=== PATIENT | male | born 1935 | race Two or more races ===

== ENCOUNTER 2016-09-17 01:09 | Emergency (ER) | payer OTHER ==
[2016-09-17] MEDS ORDERED: SOD CHLORIDE 0.9% 1,000 ML IV STA (01:24)
[2016-09-17] MEDS ORDERED: MIDAZOLAM (DRIP) 50 mg/50 mL 50 ML IV STA (01:24)
[2016-09-17] MEDS ORDERED: ACETAMINOPHEN 650 MG SUPP PR ONE (01:30)
[2016-09-17] MEDS ORDERED: AZITHROMYCIN 500MG/NS (PMX) 250 ML IVPB ONE (01:30)
[2016-09-17] MEDS ORDERED: CEFTRIAXONE 1 GM/50 ML (PMX) 50 ML IVPB ONE (01:30)
[2016-09-17] MEDS ORDERED: MIDAZOLAM 1 MG/ML 2 ML INJ IV ONE (01:30)
[2016-09-17] MEDS ORDERED: NITROGLYCERIN 50 MG/D5W (PMX) 250 ML IV SCH ×2 (01:30)
[2016-09-17] MEDS ORDERED: ASPIRIN 300 MG SUPP PR ONE (01:30)
[2016-09-17] MEDS ORDERED: DILTIAZEM 25 MG INJ ONE (01:41)
--- NOTE | 2016-09-17 01:42 | ERA ---
ER Documentation Chief Complaint Date/Time DATE: 09/17/16 TIME: 01:42 Chief Complaint Respiratory distress since 10pm HPI 81-year-old man brought in by EMS from home for shortness of breath. He was initially treated with albuterol therapy by EMS without any relief and then placed on CPAP with some improvement. He states he does have a history of irregular heartbeat, previous myocardial infarction, and congestive heart failure. He also stated over the last few days his lower extremities have been swelling up. He denied fever but states he has had a cough for a few days, no rash, no recent travel, no recent antibiotic use, no vomiting or diarrhea. Patient denied chest pain. Patient was transported here on CPAP with respiratory difficulty. ROS All systems reviewed and are negative except as per history of present illness. Medications Home Meds Unable to Obtain Active Prescriptions or Reported Meds Allergies Allergies: Coded Allergies: Penicillins (Unverified Allergy, Unknown, 09/17/16) PER [employer] codeine (Unverified Allergy, Unknown, 09/17/16) PER [employer]OR iodine (Unverified Allergy, Unknown, 09/17/16) PER [employer] PMhx/Soc hypertension, congestive heart failure, atrial fibrillation and coronary artery disease on Pradaxa History of Surgery: Yes Hx Alcohol Use: No Hx Substance Use: No FmHx Family History: No diabetes Physical Exam Vitals Vital Signs Date Time Temp Pulse Resp B/P Pulse Ox O2 Delivery O2 Flow Rate FiO2 09/17/16 01:28 101.3 123 50 184/113 86 Physical Exam GENERAL: Well-developed, dyspneic, febrile HEENT: Moist mucous membranes, pink conjunctiva, no cervical spine tenderness or step-off deformities, no goiter, no jaundice or icterus, extraocular movements intact without pain. NEURO: Alert and oriented 1, cranial nerves II through XII intact bilaterally, pupils equal round reactive to light, no focal deficits or facial asymmetry, CARDIAC: Tachycardic and regular no murmurs rubs or gallops LUNGS: Poor breath sounds bilaterally, crackles, no wheezing or stridor ABDOMEN: Soft nontender, no guarding, no rigidity, no rebound, no psoas sign no obturator sign. Normoactive bowel sounds SKIN: Warm and dry to touch, no abrasions, contusions, or hematomas, no lacerations, no ecchymosis, no target lesions, and without ulcers EXTREMITIES: No clubbing cyanosis, 3+ pitting edema in the lower extremities bilaterally, calves are bilaterally symmetrical, no Homans sign, no popliteal cord sign. Distal pulses equal and bilateral PSYCH: Normal affect without agitation or irritability Result Diagram: 09/17/16 0130 09/17/16 0130 Results 24 hrs Laboratory Tests Test 09/17/16 01:30 09/17/16 02:00 White Blood Count 16.410^3/ul Red Blood Count 5.3510^6/ul Hemoglobin 13.7g/dl Hematocrit 45.3% Mean Corpuscular Volume 84.7fl Mean Corpuscular Hemoglobin 25.6pg Mean Corpuscular Hemoglobin Concent 30.2g/dl Red Cell Distribution Width 17.7% Platelet Count 15699^3/UL Mean Platelet Volume 10.5fl Neutrophils % 85.6% Lymphocytes % 8.7% Monocytes % 3.9% Eosinophils % 1.0% Basophils % 0.4% Nucleated Red Blood Cells % 0.0/100WBC Neutrophils # 14.110^3/ul Lymphocytes # 1.410^3/ul Monocytes # 0.610^3/ul Eosinophils # 0.210^3/ul Basophils # 0.110^3/ul Nucleated Red Blood Cells # 0.010^3/ul Prothrombin Time 19.2Sec Prothrombin Time Ratio 1.5 INR International Normalized Ratio 1.60 Sodium Level 135mmol/L Potassium Level 4.6mmol/L Chloride Level 100mmol/L Carbon Dioxide Level 28mmol/L Anion Gap 12 Blood Urea Nitrogen 20mg/dl Creatinine 0.89mg/dl Glucose Level 131mg/dl Lactic Acid Level 1.7mmol/L Calcium Level 10.0mg/dl Total Bilirubin 1.1mg/dl Direct Bilirubin 0.00mg/dl Indirect Bilirubin 1.1mg/dl Aspartate Amino Transf (AST/SGOT) 53IU/L Alanine Aminotransferase (ALT/SGPT) 44IU/L Alkaline Phosphatase 116IU/L Troponin I 0.026ng/ml B-Type Natriuretic Peptide 2720PG/ML Total Protein 7.7g/dl Albumin 3.6g/dl Globulin 4.10g/dl Albumin/Globulin Ratio 0.87 Lipase 61U/L Blood Gas Specimen Source Blood arterial Arterial Blood Date Drawn 09/17/2016 2:25:09 AM Arterial Blood pH (Temp corrected) 7.273 Arterial Blood pCO2 (Temp correct) 47.3mmhg Arterial Blood pO2 (Temp corrected) 409.4mmHG Arterial Blood HCO3 21.4mmol/L Arterial Blood Base Excess -5.5mmol/L Arterial Blood Oxygen Saturation 99.5mmHG David Test ACCEPTAB Arterial Blood Gas Puncture Site Right Radial Arterial Blood Carboxyhemoglobin 0.1% Arterial Blood Methemoglobin 0.4% Blood Gas A-a O2 Differential 256.3mmHg Oxyhemoglobin Percent 99.0% Total Hemoglobin 13.2g/dl Blood Gas Temperature 37.0C Blood Gas Respiration Rate 16.0 Blood Gas Actual Respiration Rate 16 Blood Gas Modality VENT - AC FiO2 100.0% Blood Gas Tidal Volume 500.0mL Blood Gas Mean Airway Pressure 12 Blood Gas Low PEEP Setting 5.0cmH2O Blood Gas Inspiratory Pressure 29.0 Blood Gas Critical Value Read Back DR DANIELS Blood Gas Notified Whom BL Blood Gas Notified Time 09/17/2016 2:35:47 AM Current Medications Medications (Trade) Dose Ordered Sig/Donnie Route PRN Reason Start Time Stop Time Status Last Admin Dose Admin Nitroglycerin/ Dextrose (Nitroglycerin 50 Mg/D5W (Pmx)) 250 ml @ 0.5 mls/hr TITRATE IV 09/17/16 01:30 09/17/16 01:30 DC Midazolam HCl 2 mg 2 mg ONCE ONCE IV 09/17/16 01:30 09/17/16 01:31 DC 09/17/16 02:08 Sodium Chloride 1,000 ml @ 2,000 mls/hr Q30M STAT IV 09/17/16 01:24 09/17/16 01:53 DC 09/17/16 02:24 Midazolam HCl (Versed) 50 ml @ 3 mls/hr ONCE STAT IV 09/17/16 01:24 09/17/16 18:03 09/17/16 02:08 Aspirin (Aspirin) 300 mg ONCE ONCE NE 09/17/16 01:30 09/17/16 01:31 DC 09/17/16 02:09 Acetaminophen 650 mg 650 mg ONCE ONCE NE 09/17/16 01:30 09/17/16 01:31 DC 09/17/16 02:09 Ceftriaxone Sodium 50 ml @ 100 mls/hr ONCE ONCE IVPB 09/17/16 01:30 09/17/16 01:59 DC 09/17/16 02:07 Azithromycin 250 ml @ 250 mls/hr ONCE ONCE IVPB 09/17/16 01:30 09/17/16 02:29 DC Nitroglycerin/ Dextrose (Nitroglycerin 50 Mg/D5W (Pmx)) 250 ml @ 30 mls/hr TITRATE IV 09/17/16 01:30 09/17/16 02:14 Diltiazem HCl (Cardizem Iv) 25 mg STK-MED ONCE .ROUTE 09/17/16 01:41 09/17/16 01:42 DC Furosemide (Lasix) 60 mg ONCE ONCE IV 09/17/16 02:00 09/17/16 02:01 DC 09/17/16 02:23 Procedures/MDM IV line was established patient was placed on shelter monitor rhythm strip revealed a sinus tachycardia at 160 bpm with upright P and T waves. Patient was febrile. Blood and urine cultures have been ordered results are pending I will follow-up. Patient has active decompensated heart failure, pulmonary edema, and hypertensive emergency with concerning fever suspicious for early sepsis. He will require IV boluses of fluid and given his decompensated heart failure and his overall level of dyspnea I recommended orotracheal intubation. Patient agreed to this. Endotracheal Intubation by me: Pre assessment performed. Sedation with etomidate 20 mg IV 1 and paralysis with succinylcholine 100 mg 1. Pre-oxygenation performed with 100% oxygen RSI: Performed w/o complication or hypoxic events. Medications as ordered. Blade: Mac 4 ET Tube: 7.5 cm Depth: 23 cm at the lip Intubation confirmed by colorimetric CO2, equal breath sounds, quiet over the stomach. Chest X-ray 1V Interpreted by me: 4 cm above the lynette ET tube. Bilateral pulmonary edema and cardiomegaly, no acute infiltrates normal soft tissue, No pneumothorax. I ordered aspirin 300 mg per rectum for cardioprotective measures, acetaminophen 650 mg per rectum for fever, ceftriaxone 1 g IV, azithromycin 500 mg IV, midazolam drip for continued sedation, and nitroglycerin drip for hypertensive emergency with a diastolic blood pressure of over 120 mmHg initially. For initial atrial fibrillation with rapid ventricular rate at about 160-180 bpm he was given diltiazem 20 mg IV 1 with improvement in pulse. With nitroglycerin drip his blood pressure did improve, and is being kept sedated with midazolam drip. The patient is not septic. CBC reveals a leukocytosis of 16 otherwise unremarkable, electrolytes normal, liver function tests normal, troponin was negative, BNP elevated at over 2000, ABG on FiO2 100% reveals a pH of 7.27, PCO2 47, PO2 409 revealing metabolic acidosis. FiO2 decreased to 50%. Critical Care: Time: 50 minutes, this was time separate from other procedures. Treatments/Evaluations: Close monitoring and treatment of unstable vital signs, cardiorespiratory, and neurologic status, while maintaining tight balance of fluid, respiratory, and cardiac interventions. EKG performed after diltiazem therapy, read by me revealed a normal sinus rhythm at 92 bpm, normal axis, narrow QRS complex, no concerning ST elevations or depressions noted. I spoke to [facility] physician and they recommended transfer with a medical doctor and respiratory therapist. Authorization number is [id number] Departure Diagnosis: Primary Impression: Pneumonia Qualified Code: J18.9 - Pneumonia of both lower lobes due to infectious organism Additional Impressions: CHF (congestive heart failure) Qualified Code: I50.21 - Acute systolic congestive heart failure Hypertensive emergency Atrial fibrillation with RVR Acute respiratory failure Qualified Code: J96.01 - Acute respiratory failure with hypoxia and hypercapnia Condition: Critical LIA DANIELS MD September 17, 2016 01:42
[2016-09-17 01:51] LABS: ADD SCAN DIFF NO
[2016-09-17 01:55] LABS: BASOPHIL # 0.1 10^3/ul (0.0-0.1); BASOPHILS % 0.4 % (0.0-2.0); EOSINOPHILS # 0.2 10^3/ul (0.0-0.5); HEMATOCRIT 45.3 % (42.0-52.0); HEMOGLOBIN 13.7 g/dl (14.0-18.0); LYMPHOCYTES # 1.4 10^3/ul (0.8-2.9); LYMPHOCYTES % 8.7 % (15.0-51.0); MEAN CORPUSCULAR HEMOGLOBIN 25.6 pg (29.0-33.0); MEAN CORPUSCULAR HGB CONC 30.2 g/dl (32.0-37.0); MEAN CORPUSCULAR VOLUME 84.7 fl (82.0-101.0); MEAN PLATELET VOLUME 10.5 fl (7.4-10.4); MONOCYTE # 0.6 10^3/ul (0.3-0.9); MONOCYTES % 3.9 % (0.0-11.0); NEUTROPHIL # 14.1 10^3/ul (1.6-7.5); NEUTROPHILS % 85.6 % (39.0-77.0); PLATELET COUNT 379 10^3/UL (140-415); RED BLOOD COUNT 5.35 10^6/ul (4.70-6.10); RED CELL DISTRIBUTION WIDTH 17.7 % (11.5-14.5); WHITE BLOOD COUNT 16.4 10^3/ul (4.8-10.8)
[2016-09-17] MEDS ORDERED: FUROSEMIDE 40 MG INJ IV ONE (02:00)
[2016-09-17 02:14] LABS: INR 1.6; PROTIME 19.2 Sec (12.2-14.2); PT RATIO 1.5
[2016-09-17 02:17] LABS: ALBUMIN 3.6 g/dl (3.3-4.9); ALBUMIN/GLOBULIN RATIO 0.87; BILIRUBIN,INDIRECT 1.1 mg/dl (0-1.1); BILIRUBIN,TOTAL 1.1 mg/dl (0.2-1.3); CREATININE 0.89 mg/dl (0.61-1.24); POTASSIUM 4.6 mmol/L (3.5-5.1); TOTAL PROTEIN 7.7 g/dl (6.1-8.1)
[2016-09-17 02:29] LABS: TROPONIN-I 0.026 ng/ml (0.00-0.12)
[2016-09-17 02:36] LABS: AADO2 Arterial 256.3 mmHg (7.0-24.0); Allen Test ACCEPTAB; Arterial Base Excess -5.5 mmol/L (-3.0-3); Arterial COHb 0.1 % (0.0-3.0); Arterial HCO3 21.4 mmol/L (22.0-26.0); Arterial MetHb 0.4 % (0.0-1.5); Arterial Total Hemglobin 13.2 g/dl (12.0-18.0); Blood Gas Mean Airway Pressure 12; MODE VENT - AC
--- NOTE | 2016-09-17 03:17 | RADRPT ---
PROCEDURE: XR Chest. CLINICAL INDICATION: Status post intubation TECHNIQUE: Single frontal view of the chest was obtained COMPARISON: 12/01/2015 FINDINGS: The tip of the endotracheal tube is approximately 5 cm above the lynette. The heart does not appear to be grossly enlarged. There is pulmonary vascular congestion and diffuse bilateral lung densities most suggestive of pulmonary edema superimposed on chronic changes and small right pleural effusion appearing since previous study. ECG leads projected over the chest. Calcification in thoracic aort a. IMPRESSION: Tip of endotracheal tube approximately 5 cm above lynette. Pulmonary vascular congestion and diffuse bilateral lung densities most suggestive of pulmonary edema superimposed on chronic changes and smal l right pleural effusion appearing since previous study. RPTAT: HJES .Sean Barnett MD, MD Date Time Electronically viewed and signed by .Sean Barnett MD, on 09/17/2016 03:17 .S/
[2016-09-17 03:18] LABS: AADO2 Arterial 214.5 mmHg (7.0-24.0); Allen Test ACCEPTAB; Arterial Base Excess -6.6 mmol/L (-3.0-3); Arterial COHb 0.1 % (0.0-3.0); Arterial Fraction of Oxyhgb 94.3 % (93.0-99.0); Arterial HCO3 20.6 mmol/L (22.0-26.0); Arterial MetHb 0.4 % (0.0-1.5); Arterial Total Hemglobin 12.6 g/dl (12.0-18.0); Blood Gas Mean Airway Pressure 12; MODE VENT - AC
[2016-09-17 03:23] LABS: ADD UMIC YES; URINE BILIRUBIN (Dip) NEGATIVE (NEGATIVE); URINE BLOOD (Dip) TRACE (NEGATIVE); URINE COLOR LT. YELLOW (YELLOW); URINE GLUCOSE (Dip) NEGATIVE (NEGATIVE); URINE KETONES (Dip) NEGATIVE (NEGATIVE); URINE LEUKOCYTE ESTERASE (Dip) NEGATIVE (NEGATIVE); URINE NITRITE (Dip) NEGATIVE (NEGATIVE); URINE TOTAL PROTEIN (Dip) NEGATIVE (NEGATIVE); URINE UROBILINOGEN (Dip) 0.2 E.U./dL (0.1-1.0)
[2016-09-17] MEDS ORDERED: SOD CHLORIDE 0.9% 1,000 ML IV ONE (03:30)
[2016-09-17 03:46] LABS: BACTERIA,URINE FEW; SQUAMOUS EPITHELIAL CELL,UR FEW
[2016-09-17 04:09] VITALS: TEMP 97.7
[2016-09-17 05:49] VITALS: BP 92/50; PULSE 80; RESP 16
[2016-09-17] MEDS ORDERED: NORepinephrine 8MG/250 ML (PMX 250 ML IV SCH (06:00)
[2016-09-17] MEDS ORDERED: ROCURONIUM 50 MG INJ ONE (07:00)
[2016-09-17] MEDS ORDERED: SUCCINYLCHOLINE CHLORIDE 100 MG/5 ML SYG IV ONE (07:00)
[2016-09-17] MEDS ORDERED: MIDAZOLAM 1 MG/ML 2 ML INJ ONE (07:00)
[2016-09-17] MEDS ORDERED: ETOMIDATE 20 MG INJ ONE (07:00)
== END 2016-09-17 06:19 | disposition short-term general hospital (02) ==
LOC: E/R 01:09
DX: J18.9 Pneumonia, unspecified organism (principal); R40.2252 Coma scale, best verbal response, oriented, at arrival to emergency department; I50.21 Acute systolic (congestive) heart failure; I16.1 Hypertensive emergency; I48.91 Unspecified atrial fibrillation; J96.01 Acute respiratory failure with hypoxia; I10 Essential (primary) hypertension; I25.10 Atherosclerotic heart disease of native coronary artery without angina pectoris; R40.2142 Coma scale, eyes open, spontaneous, at arrival to emergency department; R40.2362 Coma scale, best motor response, obeys commands, at arrival to emergency department
CPT/HCPCS: 31500; 36600; 51702; 71010; 80053; 81001; 82803; 83605; 83690; 83880; 84484; 85025; 85610; 94002; J0456; J0696; J1940; J2250; J7030; 36415; 93005; 96365; 96375; J7999